=== PATIENT | male | born 1965 | race Caucasian/White ===

== ENCOUNTER 2017-12-28 17:09 | Inpatient (IN) | payer SELFPAY ==
[~2017-12-28] VITALS: Ht 177.8 cm; Wt 90.6 kg
[2017-12-28] MEDS ORDERED: ketorolac trometh. 30mg/ml inj. IV ONE (17:40)
[2017-12-28] MEDS ORDERED: ondansetron/PF 4mg/2ml inj IM ONE (17:40)
[2017-12-28] MEDS ORDERED: HYDROmorphone 1 mg/ml syringe IV ONE (17:40)
[2017-12-28] MEDS ORDERED: ondansetron/PF 4mg/2ml inj IV ONE ×3 (18:05→19:20)
[2017-12-28 18:19] LABS: BASOPHILS % (AUTO) 0.1 % (0-1); EOSINOPHILS % (AUTO) 0 % (0-6); LYMPHOCYTES # (AUTO) 0.6 X10'3 (1.1-4.8); LYMPHOCYTES % (AUTO) 4.9 % (21-51); MEAN CORPUSCULAR HEMOGLOBIN 29.8 PG (27.0-31.0); MEAN CORPUSCULAR HGB CONC 33.9 % (33.0-36.5); MEAN CORPUSCULAR VOLUME 88.1 FL (78-98); MEAN PLATELET VOLUME 7.9 FL (7.4-10.4); MONOCYTES # (AUTO) 0.9 X10'3 (0-0.9); MONOCYTES % (AUTO) 6.5 % (2-12); NEUTROPHILS # (AUTO) 11.7 X10'3 (1.8-7.7); NEUTROPHILS % (AUTO) 88.5 % (42-75); PLATELET COUNT 196 X10'3 (140-440); RED BLOOD COUNT 6.24 X10'6 (4.70-6.10); RED CELL DISTRIBUTION WIDTH 13.3 % (11.5-14.5); WHITE BLOOD COUNT 13.2 X10'3 (4.5-11.0)
[2017-12-28 18:31] LABS: HEMOGLOBIN 18.6 g/dl (14.0-17.9)
[2017-12-28 18:33] LABS: PROTHROMBIN TIME 9.9 SECONDS (9.0-12.0)
[2017-12-28 18:39] LABS: ALANINE AMINOTRANSFERASE 32 U/L (12-78); ALBUMIN 4.3 G/DL (3.4-5.0); ALBUMIN/GLOBULIN RATIO 1.2 (1.1-1.5); ALKALINE PHOSPHATASE 81 IU/L (46-116); AMYLASE 71 U/L (25-115); ANION GAP 9 (8-16); ASPARTATE AMINO TRANSFERASE 22 U/L (10-37); BILIRUBIN,TOTAL 0.8 MG/DL (0.1-1.0); BLOOD UREA NITROGEN 17 MG/DL (7-18); BUN/CREATININE RATIO 9.7 (5.4-32.0); CHLORIDE 99 MMOL/L (99-107); CREATININE 1.75 MG/DL (0.60-1.10); GLUCOSE 123 MG/DL (70-104); LIPASE 114 U/L (73-393); POTASSIUM 5.7 MMOL/L (3.5-5.1); SODIUM 136 MMOL/L (135-145); TOTAL CARBON DIOXIDE 28.4 MMOL/L (24-32); TOTAL PROTEIN 7.9 G/DL (6.4-8.2); eGFR 41 ML/MIN
[2017-12-28] MEDS ORDERED: normal saline 1000ML IV soln IVB ONE (19:20)
[2017-12-28 19:43] LABS: CLARITY,URINE CLEAR (Clear); COLOR,URINE YELLOW (Yellow); GLUCOSE, URINE NEGATIVE (Neg); KETONES,URINE 15 mg/dl (Neg); LEUKOCYTE ESTERASE ,URINE NEGATIVE (Neg); NITRITES, URINE NEGATIVE (Neg); OCCULT BLOOD,URINE SMALL (Neg); PH,URINE 5.5 (4.8-8.0); PROTEIN,URINE 30 mg/dl (Neg); UROBILINOGEN,URINE 0.2 E.U/dL (0.2-1.0)
[2017-12-28 19:46] LABS: UA COLLECTION TYPE CLN CATCH MIDSTREAM
[2017-12-28 19:53] LABS: BACTERIA,URINE FEW /HPF (Neg); SQUAMOUS EPITHELIAL CELL,UR FEW /LPF (FEW); WBC,URINE 0-4 /HPF (0-4)
[2017-12-28 19:54] LABS: RBC,URINE 0-2 /HPF (0-2)
[2017-12-28] MEDS ORDERED: LORA-269 PO (19:57)
[2017-12-28] MEDS ORDERED: temazepam 15mg capsule PO PRN (21:00)
[2017-12-28] MEDS ORDERED: ondansetron/PF 4mg/2ml inj IV PRN (22:25)
[2017-12-28] MEDS ORDERED: HYDROcodone/acetaminophen 10/325mg tab PO PRN (22:25)
[2017-12-28] MEDS ORDERED: acetaminophen 325mg tablet PO PRN ×2 (22:25)
[2017-12-28] MEDS ORDERED: LORazepam 1 MG tablet PO PRN (22:25)
[2017-12-28] MEDS ORDERED: acetaminophen 650mg rectal suppository RC PRN (22:25)
[2017-12-28] MEDS ORDERED: diphenhydrAMINE 25mg capsule PO PRN (22:25)
[2017-12-28] MEDS ORDERED: magnesium hydroxide 30ml (MOM) UD suspension PO PRN (22:25)
[2017-12-28] MEDS ORDERED: bisacodyl 10mg suppository rectal RC PRN (22:25)
[2017-12-28] MEDS ORDERED: metoclopramide 5 mg/ml inj IV PRN (22:25)
[2017-12-28] MEDS ORDERED: HYDROmorphone 1 mg/ml syringe IV PRN (22:25)
[2017-12-28] MEDS ORDERED: mag hydrox/Alum hydrox/simeth 30ml oral suspension PO PRN (22:25)
[2017-12-28] MEDS ORDERED: morphine 2 MG/ML inj. syringe IV PRN (22:25)
[2017-12-28] MEDS ORDERED: diphenhydrAMINE 50 mg/ml inj IV PRN (22:25)
[2017-12-28] MEDS ORDERED: dextrose 50%-water 50ml dispensing syringe IV ONE (22:30)
[2017-12-28] MEDS ORDERED: insulin regular, human 10 units/0.1 ml syringe IV ONE (22:30)
[2017-12-28] MEDS ORDERED: sodium bicarbonate (8.4%) 1 mEq/ml syringe IV ONE (22:30)
[2017-12-28] MEDS: albuterol 2.5 MG/3 ML nebule NEB ONE (22:30)
[2017-12-28] MEDS ORDERED: sodium polystyrene sulfonate 15gm/60ml oral suspension PO ONE ×2 (22:30→23:20)
[2017-12-28] MEDS: normal saline 1000ml 1,000 ML IV SCH (22:43)
[2017-12-28 22:58] LABS: PHOSPHORUS 2.3 MG/DL (2.3-4.5)
[2017-12-28 23:09] LABS: PARTIAL THROMBOPLASTIN TIME 26 SECONDS (22-32); PROTHROMBIN TIME 10.1 SECONDS (9.0-12.0)
[2017-12-29 02:00] VITALS: BP 142/83
[2017-12-29 05:21] LABS: BASOPHILS % (AUTO) 0.2 % (0-1); EOSINOPHILS % (AUTO) 0.3 % (0-6); HEMOGLOBIN 14.8 g/dl (14.0-17.9); LYMPHOCYTES # (AUTO) 1.2 X10'3 (1.1-4.8); MEAN CORPUSCULAR HGB CONC 33.6 % (33.0-36.5); MEAN CORPUSCULAR VOLUME 89.2 FL (78-98); MEAN PLATELET VOLUME 7.6 FL (7.4-10.4); NEUTROPHILS # (AUTO) 7.5 X10'3 (1.8-7.7); NEUTROPHILS % (AUTO) 77.5 % (42-75); PLATELET COUNT 154 X10'3 (140-440); RED BLOOD COUNT 4.93 X10'6 (4.70-6.10); RED CELL DISTRIBUTION WIDTH 13.4 % (11.5-14.5); WHITE BLOOD COUNT 9.6 X10'3 (4.5-11.0)
[2017-12-29 05:36] LABS: ALANINE AMINOTRANSFERASE 22 U/L (12-78); ALBUMIN 3.1 G/DL (3.4-5.0); ALBUMIN/GLOBULIN RATIO 1.1 (1.1-1.5); ALKALINE PHOSPHATASE 51 IU/L (46-116); ANION GAP 4 (8-16); ASPARTATE AMINO TRANSFERASE 15 U/L (10-37); BILIRUBIN,TOTAL 0.6 MG/DL (0.1-1.0); BLOOD UREA NITROGEN 18 MG/DL (7-18); BUN/CREATININE RATIO 9.5 (5.4-32.0); CALCIUM 8.3 MG/DL (8.5-10.1); CHLORIDE 104 MMOL/L (99-107); CREATININE 1.89 MG/DL (0.60-1.10); GLUCOSE 94 MG/DL (70-104); POTASSIUM 3.8 MMOL/L (3.5-5.1); SODIUM 142 MMOL/L (135-145); TOTAL PROTEIN 5.8 G/DL (6.4-8.2); eGFR 37 ML/MIN
[2017-12-29] MEDS ORDERED: normal saline 1000ml 1,000 ML IVB ONE (06:30)
[2017-12-29 07:28] VITALS: BP 123/77
[2017-12-29] MEDS: pantoprazole 40mg Tablet.DR PO SCH (07:36)
[2017-12-29] MEDS: docusate sod 100mg capsule PO SCH ×2 (07:36→19:57)
[2017-12-29] MEDS: normal saline 1000ml 1,000 ML IV SCH ×2 (07:38→18:56)
[2017-12-29] MEDS ORDERED: CefTRIAXone/D5W-Rocephin 1gm 50 ML IV SCH (08:00)
[2017-12-29 11:42] VITALS: BP 118/75
[2017-12-29 19:00] VITALS: BP 116/71
[2017-12-29] MEDS ORDERED: tamsulosin 0.4mg capsule PO SCH (21:00)
[2017-12-30] VITALS (15 sets, daily range): BP systolic 110–142; BP diastolic 50–91
[2017-12-30] MEDS: normal saline 1000ml 1,000 ML IV SCH (04:12)
[2017-12-30] MEDS ORDERED: iohexol 300 MG/1 ML 50ml polymer ONE (06:26)
[2017-12-30 06:50] LABS: BASOPHILS % (AUTO) 0.3 % (0-1); EOSINOPHILS # (AUTO) 0.1 X10'3 (0-0.9); EOSINOPHILS % (AUTO) 1.6 % (0-6); HEMATOCRIT 42.4 % (42.0-52.0); HEMOGLOBIN 14.5 g/dl (14.0-17.9); LYMPHOCYTES # (AUTO) 0.8 X10'3 (1.1-4.8); LYMPHOCYTES % (AUTO) 11.2 % (21-51); MEAN CORPUSCULAR HEMOGLOBIN 30.2 PG (27.0-31.0); MEAN CORPUSCULAR HGB CONC 34.2 % (33.0-36.5); MEAN CORPUSCULAR VOLUME 88.3 FL (78-98); MEAN PLATELET VOLUME 7.9 FL (7.4-10.4); MONOCYTES # (AUTO) 0.6 X10'3 (0-0.9); NEUTROPHILS # (AUTO) 5.6 X10'3 (1.8-7.7); NEUTROPHILS % (AUTO) 77.9 % (42-75); PLATELET COUNT 137 X10'3 (140-440); RED BLOOD COUNT 4.81 X10'6 (4.70-6.10); WHITE BLOOD COUNT 7.1 X10'3 (4.5-11.0)
[2017-12-30 07:05] LABS: PRE OP PROTIME 10.1 SECONDS (9.0-12.0)
[2017-12-30 07:26] LABS: ALANINE AMINOTRANSFERASE 28 U/L (12-78); ALBUMIN 3.1 G/DL (3.4-5.0); ALBUMIN/GLOBULIN RATIO 1.1 (1.1-1.5); ALKALINE PHOSPHATASE 54 IU/L (46-116); ANION GAP 8 (8-16); ASPARTATE AMINO TRANSFERASE 20 U/L (10-37); BILIRUBIN,TOTAL 0.5 MG/DL (0.1-1.0); BLOOD UREA NITROGEN 21 MG/DL (7-18); BUN/CREATININE RATIO 10.6 (5.4-32.0); CALCIUM 8.5 MG/DL (8.5-10.1); CHLORIDE 105 MMOL/L (99-107); CREATININE 1.99 MG/DL (0.60-1.10); GLUCOSE 91 MG/DL (70-104); MAGNESIUM 1.9 MG/DL (1.5-2.4); PHOSPHORUS 3.1 MG/DL (2.3-4.5); POTASSIUM 4.1 MMOL/L (3.5-5.1); SODIUM 140 MMOL/L (135-145); TOTAL CARBON DIOXIDE 27.4 MMOL/L (24-32); TOTAL PROTEIN 5.8 G/DL (6.4-8.2); eGFR 35 ML/MIN
[2017-12-30] MEDS: pantoprazole 40mg Tablet.DR PO SCH (07:30)
[2017-12-30] MEDS ORDERED: sevoflurane 250ml liquid IH ONE (07:55)
[2017-12-30] MEDS ORDERED: CefTRIAXone/D5W-Rocephin 1gm 50 ML IV SCH (08:00)
[2017-12-30] MEDS ORDERED: ringers solution, lacted 1,000 ML IV SCH (08:02)
[2017-12-30] MEDS ORDERED: fentaNYL/PF 50MCG/1 ML 2ML syringe ONE (08:04)
[2017-12-30] MEDS ORDERED: midazolam 2 mg/2 ml injection ONE (08:04)
[2017-12-30] MEDS ORDERED: LIDOcaine 2% (20mg/ml) 5ml vial ONE (08:04)
[2017-12-30] MEDS ORDERED: propofol inj 20 ML IV ONE (08:04)
[2017-12-30] MEDS ORDERED: morphine 4 MG/ML inj SYRINge IV PRN ×2 (08:05)
[2017-12-30] MEDS ORDERED: ondansetron/PF 4mg/2ml inj IV PRN (08:05)
[2017-12-30] MEDS ORDERED: proCHLORperazine 10 MG/2 ml inj IV PRN (08:05)
[2017-12-30] MEDS ORDERED: meperidine/PF 25mg/ml syringe IV PRN ×3 (08:05)
[2017-12-30] MEDS ORDERED: dexamethasone sod phosphate 4mg/ml inj. ONE (08:12)
[2017-12-30] MEDS ORDERED: ondansetron/PF 4mg/2ml inj ONE (08:13)
[2017-12-30] MEDS ORDERED: ketorolac trometh. 30mg/ml inj. ONE (08:13)
[2017-12-30] MEDS: docusate sod 100mg capsule PO SCH (09:20)
[2017-12-30] MEDS ORDERED: TAMS0.4C32 PO (13:50)
[2017-12-30] MEDS ORDERED: CEPH250T PO (13:50)
== END 2017-12-30 14:30 | disposition home or self-care (01) | DRG 661 ==
LOC: ER 17:11 → ED HOLD 22:25 → SUR 3N 12-29 01:46
PROVIDERS: ADMIT Family Medicine; ATTEND Family Medicine
PROC: 0T778DZ Dilation of Left Ureter with Intraluminal Device, Via Natural or Artificial Opening Endoscopic (ICD-10-PCS; 2017-12-30)
PROC: BT1F1ZZ Fluoroscopy of Left Kidney, Ureter and Bladder using Low Osmolar Contrast (ICD-10-PCS; principal; 2017-12-30 07:55)
DX: N13.2 Hydronephrosis with renal and ureteral calculous obstruction (principal); E86.0 Dehydration; E87.5 Hyperkalemia; I10 Essential (primary) hypertension; N17.9 Acute kidney failure, unspecified; Z87.442 Personal history of urinary calculi; Z79.899 Other long term (current) drug therapy
CPT/HCPCS: 96374; 96375; 96376; 99285; Z7506; 36415; 71045; 74176; 76000; 80053; 81001; 82150; 82948; 83690; 83735; 83880; 84100; 84443; 85025; 85610; 85730; 87070; 93005; 94640; 94760; A4402; C1769; C2617; G0378; J0696; J1100; J1170; J1815; J1885; J2001; J2250; J2405; J2704; J3010; J7030; J7120; Q9967